=== PATIENT | female | born 1995 | race Caucasian/White ===

== ENCOUNTER 2017-07-21 08:32 | Inpatient (IN) | payer OTHER ==
[2017-07-21] MEDS ORDERED: MISOPROSTOL 200 MCG TAB PR (09:30)
[2017-07-21] MEDS ORDERED: IBUPROFEN 600 MG TAB PO (09:30)
[2017-07-21] MEDS ORDERED: OXYTOCIN 30 UNITS/LR 500 ML IV ×2 (09:30)
[2017-07-21] MEDS ORDERED: LIDOCAINE 1% (MPF) 30 ML INJ INJ (09:30)
[2017-07-21] MEDS ORDERED: BUTORPHANOL 2 MG INJ IV (09:30)
[2017-07-21] MEDS ORDERED: HYDROCODONE/APAP (5/325) TAB PO (09:30)
[2017-07-21] MEDS ORDERED: CARBOPROST 250 MCG INJ IM (09:30)
[2017-07-21] MEDS ORDERED: METHYLERGONOVINE 0.2 MG INJ IM (09:30)
[2017-07-21] MEDS: LACTATED RINGER'S 1,000 ML IV ×2 (10:31→18:18)
[2017-07-21 10:55] LABS: ADD MAN DIFF? NO
[2017-07-21 10:56] LABS: BASOPHILS % 0.2 % (0.0-2.0); HEMATOCRIT 35.7 % (37.0-47.0); HEMOGLOBIN 12.1 g/dl (12.0-16.0); LYMPHOCYTES # 1.4 10^3/ul (0.8-2.9); LYMPHOCYTES % 13.8 % (15.0-51.0); MEAN CORPUSCULAR HEMOGLOBIN 31.3 pg (29.0-33.0); MEAN CORPUSCULAR HGB CONC 33.9 g/dl (32.0-37.0); MEAN CORPUSCULAR VOLUME 92.5 fl (82.0-101.0); MEAN PLATELET VOLUME 9.8 fl (7.4-10.4); MONOCYTE # 0.4 10^3/ul (0.3-0.9); MONOCYTES % 3.9 % (0.0-11.0); NEUTROPHIL # 7.9 10^3/ul (1.6-7.5); NEUTROPHILS % 81.2 % (39.0-77.0); PLATELET COUNT 195 10^3/UL (140-415); RED BLOOD COUNT 3.86 10^6/ul (4.20-5.40); RED CELL DISTRIBUTION WIDTH 14.6 % (11.5-14.5)
[2017-07-21 10:56] LABS: WHITE BLOOD COUNT 9.8 10^3/ul (4.8-10.8)
[2017-07-21 11:16] LABS: INR 1.02; PROTIME 13.5 Sec (11.9-14.9); PT RATIO 1.1
[2017-07-21 11:17] LABS: PARTIAL THROMBOPLASTIN TIME 25.2 Sec (25.0-35.0)
[2017-07-21 13:20] LABS: HEPATITIS B SURFACE ANTIGEN NEGATIVE (NEGATIVE)
[2017-07-21] MEDS: DINOPROSTONE 10 MG VAG SUPP VAG (14:17)
[2017-07-21 14:58] LABS: RAPID PLASMA REAGIN NONREACTIVE (NR)
[2017-07-22] MEDS: LACTATED RINGER'S 1,000 ML IV ×4 (00:12→22:10)
[2017-07-22] MEDS ORDERED: FENTAnyl 2MCG/ML-ROPIV 0.2% 100 ML (15:18)
[2017-07-22] MEDS: OXYTOCIN 30 UNITS/LR 500 ML IV (16:46)
[2017-07-22] MEDS ORDERED: HYDROmorphONE 0.5 MG/0.5 ML SYG IV (17:00)
[2017-07-22] MEDS ORDERED: NALOXONE (0.4 MG/ML) INJ IV (17:00)
[2017-07-22] MEDS ORDERED: KETOROLAC 30 MG INJ IV (17:00)
[2017-07-22] MEDS ORDERED: ZOLPIDEM 5 MG TAB PO (17:00)
[2017-07-22] MEDS ORDERED: DIPHENHYDRAMINE 50 MG INJ IV (17:00)
[2017-07-22] MEDS ORDERED: ONDANSETRON 4 MG INJ IV (17:00)
[2017-07-22] MEDS ORDERED: MINERAL OIL LIGHT 10 ML VIAL TOP (19:30)
[2017-07-22] MEDS: ACETAMINOPHEN 325 MG TAB PO (21:20)
[2017-07-23] MEDS: FENTAnyl 2MCG/ML-ROPIV 0.2% 100 ML BAG EPI ×2 (01:32→09:22)
[2017-07-23] MEDS: LACTATED RINGER'S 1,000 ML IV ×3 (03:52→08:38)
[2017-07-23] MEDS: ACETAMINOPHEN 325 MG TAB PO ×2 (06:05→09:30)
[2017-07-23] MEDS: AMPICILLIN 2 GM/NS (PMX) 100 ML IV (06:06)
[2017-07-23] MEDS: GENTAMICIN 120 MG/NS (PMX) 100 ML IVPB (07:36)
[2017-07-23] MEDS: AMPICILLIN 1 GM/NS (PMX) 50 ML IV (10:00)
[2017-07-23] MEDS: HYDROmorphONE 0.5 MG/0.5 ML SYG IV (11:35)
[2017-07-23] MEDS: OXYTOCIN 30 UNITS/LR 500 ML IV ×4 (12:30→20:45)
[2017-07-23] MEDS ORDERED: METHYLERGONOVINE 0.2 MG INJ IM (13:00)
[2017-07-23] MEDS ORDERED: CARBOPROST 250 MCG INJ IM (13:00)
[2017-07-23] MEDS ORDERED: OXYCODONE/ASPIRIN (4.88/325) TAB PO ×2 (13:00)
[2017-07-23] MEDS ORDERED: OXYTOCIN 30 UNITS/LR 500 ML IV (13:00)
[2017-07-23] MEDS ORDERED: DIBUCAINE 1% 30 GM OINT PR (13:00)
[2017-07-23] MEDS ORDERED: MISOPROSTOL 200 MCG TAB PR (13:00)
[2017-07-23] MEDS ORDERED: ACETAMINOPHEN 500 MG TAB PO (13:00)
[2017-07-23] MEDS ORDERED: GENTAMICIN 80 MG/NS (PMX) 50 ML IVPB (14:30)
[2017-07-23] MEDS: CEPHALEXIN 500 MG CAP PO ×3 (18:00→23:40)
[2017-07-23] MEDS: IBUPROFEN 600 MG TAB PO (23:40)
[2017-07-24] MEDS: OXYTOCIN 30 UNITS/LR 500 ML IV ×3 (00:45→08:45)
[2017-07-24] MEDS: IBUPROFEN 600 MG TAB PO ×3 (05:25→17:47)
[2017-07-24] MEDS: CEPHALEXIN 500 MG CAP PO ×4 (05:25→23:20)
[2017-07-24] MEDS: SENNA/DOCUSATE NA (8.6MG/50MG) TAB PO (09:53)
[2017-07-24 10:28] LABS: ADD MAN DIFF? NO
[2017-07-24 10:39] LABS: BASOPHILS % 0.3 % (0.0-2.0); EOSINOPHILS # 0.1 10^3/ul (0.0-0.5); EOSINOPHILS % 1.1 % (0.0-7.0); HEMATOCRIT 29.5 % (37.0-47.0); LYMPHOCYTES # 1.6 10^3/ul (0.8-2.9); LYMPHOCYTES % 18.4 % (15.0-51.0); MEAN CORPUSCULAR HEMOGLOBIN 32.1 pg (29.0-33.0); MEAN CORPUSCULAR HGB CONC 33.9 g/dl (32.0-37.0); MEAN CORPUSCULAR VOLUME 94.6 fl (82.0-101.0); MEAN PLATELET VOLUME 9.9 fl (7.4-10.4); MONOCYTE # 0.5 10^3/ul (0.3-0.9); MONOCYTES % 5.7 % (0.0-11.0); NEUTROPHIL # 6.4 10^3/ul (1.6-7.5); NEUTROPHILS % 73.8 % (39.0-77.0); PLATELET COUNT 165 10^3/UL (140-415); RED BLOOD COUNT 3.12 10^6/ul (4.20-5.40); RED CELL DISTRIBUTION WIDTH 14.8 % (11.5-14.5)
[2017-07-24 10:39] LABS: WHITE BLOOD COUNT 8.7 10^3/ul (4.8-10.8)
[2017-07-25] MEDS: CEPHALEXIN 500 MG CAP PO ×2 (05:47→11:37)
[2017-07-25] MEDS: WITCH HAZEL/GLYCERIN PAD PR (08:19)
[2017-07-25] MEDS: BENZOCAINE 20% 56 ML SPRAY TOP (08:19)
[2017-07-25] MEDS: LANOLIN 7 GM TUBE TOP (08:19)
[2017-07-25] MEDS: DIPHTH/TET/ACEL PERTUSS (ADULT) 0.5 ML VIAL IM* (09:00)
== END 2017-07-25 16:14 | disposition home or self-care (01) | DRG 775 ==
LOC: PP1 07-23 13:29 → L-D 08:32 → PP1 07-23 18:20
PROVIDERS: Obstetrics & Gynecology
PROC: 10E0XZZ Delivery of Products of Conception, External Approach (ICD-10-PCS; principal; 2017-07-23)
PROC: 0W8NXZZ Division of Female Perineum, External Approach (ICD-10-PCS; 2017-07-23)
PROC: 3E033VJ Introduction of Other Hormone into Peripheral Vein, Percutaneous Approach (ICD-10-PCS; 2017-07-23)
DX: O48.0 Post-term pregnancy (principal); O99.214 Obesity complicating childbirth; E66.01 Morbid (severe) obesity due to excess calories; Z68.37 Body mass index [BMI] 37.0-37.9, adult; Z3A.40 40 weeks gestation of pregnancy; Z37.0 Single live birth
CPT/HCPCS: 62319; 76815; 85025; 85610; 85730; 86592; 86900; 86901; 87340